=== PATIENT | male | born 1985 | race Caucasian/White ===

== ENCOUNTER 2016-11-24 22:55 | Emergency (ER) | payer OTHER ==
[2016-11-25 00:09] LABS: BASO % 0.3 % (0.2-1.2); EOS # 0.1 10_X3_uL (0.0-0.5); EOS % 1.9 % (0.8-7.0); GRAN # 2.6 10_X3_uL (1.8-5.4); HEMOGLOBIN 16.5 g/dL (13.7-17.5); LYMPH # 2.6 10_X3_uL (1.3-3.6); LYMPH % 44.3 % (21.8-53.1); MEAN CORPUSCULAR HEMOGLOBIN 31.3 pg (27.0-33.0); MEAN CORPUSCULAR HGB CONC 35.1 g/dL (32.0-36.0); MEAN CORPUSCULAR VOLUME 89.2 fL (79-92); MEAN PLATELET VOLUME 10.8 fl (7.5-11.5); MONO # 0.6 10_X3_uL (0.3-0.8); MONO % 9.5 % (5.3-12.2); PLATELET COUNT 243 x10_3/uL (163-337); RED BLOOD COUNT 5.27 x10_6/uL (4.6-6.1); WHITE BLOOD COUNT 5.8 x10_3/uL (4.2-9.1)
[2016-11-25 00:26] LABS: BLOOD UREA NITROGEN 14 mg/dL (7-18); CALCIUM 8.9 mg/dL (8.7-10.7); CARBON DIOXIDE 23 mmol/L (21-32); CREATINE KINASE 65 U/L (35-232); CREATININE 0.8 mg/dL (0.6-1.3); GLUCOSE,RANDOM 88 mg/dL (70-99); POTASSIUM 4.1 mmol/L (3.5-5.1); SODIUM 136 mmol/L (136-145)
== END 2016-11-25 01:07 | disposition home or self-care (01) ==
LOC: ER 22:55
PROVIDERS: Emergency Medicine
DX: S20.212A Contusion of left front wall of thorax, initial encounter (principal); S20.211A Contusion of right front wall of thorax, initial encounter; W24.0XXA Contact with lifting devices, not elsewhere classified, initial encounter; Y92.008 Other place in unspecified non-institutional (private) residence as the place of occurrence of the external cause; F17.210 Nicotine dependence, cigarettes, uncomplicated
CPT/HCPCS: 36415; 71260; 80048; 82550; 82553; 85025; 93005; 96374; 99070; 99284-25; J7040; Q9967